=== PATIENT | female | born 1995 | race African-American/Black ===

== ENCOUNTER 2017-02-22 18:23 | Emergency (ER) | payer OTHER ==
[~2017-02-22] VITALS: Ht 170.2 cm; Wt 62.4 kg
[2017-02-22 18:27] VITALS: TEMP 36.8; Ht 170.2 cm; Wt 62.4 kg
[2017-02-22 18:55] LABS: URINE APPEARANCE CLEAR (CLEAR); URINE COLOR DK YELLOW; URINE EPITHELIAL CELL AUTO >30 /lpf (0-5); URINE NITRITE NEG (NEG); URINE PH 5.5 (4.5-7.5); URINE SPECIFIC GRAVITY 1.032 (1.000-1.030); UROBILINOGEN NEG (NEG); ZZUR CULT IF INDIC CLEAN CATCH YES
[2017-02-22 19:11] LABS: MANUAL MICROSCOPIC REQUIRED? NO; REVIEW REQ? YES; URINE BILIRUBIN NEG (NEG)
[2017-02-22 19:22] LABS: URINE MUCUS PRESENT (NONE PRSENT)
--- NOTE | 2017-02-22 19:23 | EMERGENCY ROOM VISIT NOTE ---
History Report prepared by Sis: Sharri Hurst Under the Supervision of: Dr. Larisa Magallanes M.D. First contact with patient: 18:37 Chief Complaint: ANXIETY Stated Complaint: TROUBLE BREATHING RACING HEART CANT FOCUS History of Present Illness The patient is a 21 year old female who presents to the Emergency Room with complaints of worsening anxiety beginning four days ago. The patient reports that she had a panic attack four days ago. She states she had an "impending sense of fear" because she had a school paper due. She notes that since her panic attack she has had a difficult time getting "on top of" her anxiety. At baseline, the patient reports being able to control her anxiety well. The patient has no "official" diagnosis of anxiety and she does not take any medications. She reports some intermittent suicidal thoughts with no plan. The patient states these thoughts are new for her and just started over the past four days. She notes seeing a therapist when she was 9 years old for " separation anxiety issues". She denies any chance of . Source of History: patient Onset: 4 days ago Position: other (global) Quality: other (anxiety) Timing: worsening Modifying Factors (Relieving): other (none) Review of Systems See HPI for pertinent positives & negatives. A total of 10 systems reviewed and were otherwise negative. Past Medical & Surgical Medical Problems: (1) No Known Active Medical Problems Family History Patient reports no known family medical history. Social History Smoking Status: Never Smoker Smokeless Tobacco Use: No Alcohol Use: none Drug Use: none Housing Status: lives with roommate Occupation Status: [employer] student Current/Historical Medications Scheduled Control Pills ( Control Pills), 1 TAB PO DAILY Multivitamins/Minerals (Mvi With Minerals), 1 TAB PO DAILY Nutritional Supplements (Immune Enhance), 2 TABS DAILY Scheduled PRN Cetirizine (Zyrtec), 10 MG PO DAILY PRN for Seasonal Allergies Hydroxyzine Pamoate (Vistaril), 25 MG PO Q6 PRN for Anxiety Physical Exam Vital Signs Date Time Temp Pulse Resp B/P (MAP) Pulse Ox O2 Delivery O2 Flow Rate FiO2 02/22/17 20:54 88 20 126/72 97 02/22/17 18:27 36.8 99 16 140/87 97 Room Air Physical Exam Vital signs reviewed. General: Well-appearing female, in no significant distress. HEENT: No scleral icterus, PERRLA, neck supple. Atraumatic. Cardiovascular: Regular rate and rhythm, no extra sounds. Pulmonary: Clear to auscultation bilaterally, normal work of breathing. Abdomen: Soft, nontender, nondistended, positive bowel sounds. Musculoskeletal: Atraumatic, no peripheral edema. Neurologic: Patient awake alert and oriented x 3 Skin: Warm, dry, no rash Psych: Positive suicidal ideation, no plan, negative homicidal ideation. Medical Decision & Procedures Laboratory Results 02/22/17 18:52 Red Blood Count 4.13, Mean Corpuscular Volume 87.2, Mean Corpuscular Hemoglobin 29.5, Mean Corpuscular Hemoglobin Concent 33.9, Mean Platelet Volume 9.9, Neutrophils (%) (Auto) 68.4, Lymphocytes (%) (Auto) 25.4, Monocytes (%) (Auto) 5.7, Eosinophils (%) (Auto) 0.1, Basophils (%) (Auto) 0.3, Neutrophils # (Auto) 5.31, Lymphocytes # (Auto) 1.97, Monocytes # (Auto) 0.44, Eosinophils # (Auto) 0.01, Basophils # (Auto) 0.02 02/22/17 18:52 Test 02/22/17 18:40 02/22/17 18:52 Urine Color DK YELLOW Urine Appearance CLEAR (CLEAR) Urine pH 5.5 (4.5-7.5) Urine Specific [place] 1.032 (1.000-1.030) Urine Protein TRACE (NEG) Urine Glucose (UA) NEG (NEG) Urine Ketones 2+ (NEG) Urine Occult Blood NEG (NEG) Urine Nitrite NEG (NEG) Urine Bilirubin NEG (NEG) Urine Urobilinogen NEG (NEG) Urine Leukocyte Esterase TRACE (NEG) Urine WBC (Auto) 5-10 /hpf (0-5) Urine RBC (Auto) 0-4 /hpf (0-4) Urine Hyaline Casts (Auto) 0 /lpf (0-5) Urine Epithelial Cells (Auto) >30 /lpf (0-5) Urine Bacteria (Auto) 2+ (NEG) Urine Mucus PRESENT (NONE PRSENT) Urine Test NEG (NEG) Urine Opiates Screen NEG (NEG) Urine Methadone, Qualitative NEG (NEG) Urine Barbiturates NEG (NEG) Urine Phencyclidine (PCP) Level NEG (NEG) Ur Amphetamine/Methamphetamine NEG (NEG) MDMA (Ecstasy) Screen NEG (NEG) Urine Benzodiazepines Screen NEG (NEG) Urine Cocaine Metabolite NEG (NEG) Urine Marijuana (THC) NEG (NEG) White Blood Count 7.76 K/uL (4.8-10.8) Red Blood Count 4.13 M/uL (4.2-5.4) Hemoglobin 12.2 g/dL (12.0-16.0) Hematocrit 36.0 % (37-47) Mean Corpuscular Volume 87.2 fL (80-100) Mean Corpuscular Hemoglobin 29.5 pg (25-34) Mean Corpuscular Hemoglobin Concent 33.9 g/dl (32-36) Platelet Count 231 K/uL (130-400) Mean Platelet Volume 9.9 fL (7.4-10.4) Neutrophils (%) (Auto) 68.4 % Lymphocytes (%) (Auto) 25.4 % Monocytes (%) (Auto) 5.7 % Eosinophils (%) (Auto) 0.1 % Basophils (%) (Auto) 0.3 % Neutrophils # (Auto) 5.31 K/uL (1.4-6.5) Lymphocytes # (Auto) 1.97 K/uL (1.2-3.4) Monocytes # (Auto) 0.44 K/uL (0.11-0.59) Eosinophils # (Auto) 0.01 K/uL (0-0.5) Basophils # (Auto) 0.02 K/uL (0-0.2) RDW Standard Deviation 42.4 fL (36.4-46.3) RDW Coefficient of Variation 13.3 % (11.5-14.5) Immature Granulocyte % (Auto) 0.1 % Immature Granulocyte # (Auto) 0.01 K/uL (0.00-0.02) Anion Gap 7.0 mmol/L (3-11) Est Creatinine Clear Calc Drug Dose 93.9 ml/min Estimated GFR () 102.5 Estimated GFR (Non- 88.5 BUN/Creatinine Ratio 9.5 (10-20) Calcium Level 8.9 mg/dl (8.5-10.1) Total Bilirubin 0.5 mg/dl (0.2-1) Direct Bilirubin 0.2 mg/dl (0-0.2) Aspartate Amino Transf (AST/SGOT) 19 U/L (15-37) Alanine Aminotransferase (ALT/SGPT) 21 U/L (12-78) Alkaline Phosphatase 49 U/L (45-117) Total Protein 7.8 gm/dl (6.4-8.2) Albumin 3.8 gm/dl (3.4-5.0) Thyroid Stimulating Hormone (TSH) 0.318 uIu/ml (0.300-4.500) Salicylates Level < 1.7 mg/dl (2.8-20) Acetaminophen Level < 2 ug/ml (10-30) Ethyl Alcohol mg/dL < 3.0 mg/dl (0-3) Laboratory results per my review. Medications Administered Medications (Trade) Dose Ordered Sig/Hanny Route Start Time Stop Time Status Last Admin Dose Admin Hydroxyzine HCl (Vistaril Tab) 25 mg NOW STAT PO 02/22/17 20:06 02/22/17 20:07 DC 02/22/17 20:19 25 MG Hydroxyzine HCl (Vistaril Tab) 50 mg NOW STAT PO 02/22/17 20:07 02/22/17 20:08 DC 02/22/17 20:19 50 MG ED Course 1903: Past medical records reviewed. The patient was evaluated in room A7. A complete history and physical examination was performed. 2005: Ordered Vistaril Tab 25 mg PO. 2006: Ordered Vistaril Tab 25 mg PO. 2041: Upon reevaluation, the patient appeared to have improvement of her symptoms. I discussed findings with her. She verbalized agreement of the treatment plan. The patient was discharged home. Medical Decision Differential diagnosis: Etiologies such as mood disorder, infection, hypoglycemia, electrolyte abnormalities, cardiac sources, intracerebral event, toxicologic, neurologic, as well as others were entertained. This patient was evaluated and appeared to be in no significant distress. Physical examination is fairly unrevealing. Patient was medically cleared and evaluated by mental health. UA is likely contaminated. test is negative. The psychiatric case manager specialist, Chris, did a mental health screening on the patient. She is able to safety plan and continues to deny active suicidal thoughts. He spoke with her mother who stated she has been having trouble sleeping. She was given Vistaril 25 mg by mouth. She was sent home with 2 tablets and given a prescription. They will follow-up with mental health upon her return home for winter break next week. She will return to the ER for worsening of symptoms or any medical concerns. Medication Reconcilliation Current Medication List: was personally reviewed by me Blood Pressure Screening Patient's blood pressure: Elevated blood pressure Blood pressure disposition: Elevated BP felt to be situational Impression Primary Impression: Mild mood disorder Scribe Attestation The scribe's documentation has been prepared under my direction and personally reviewed by me in its entirety. I confirm that the note above accurately reflects all work, treatment, procedures, and medical decision making performed by me. Departure Information Dispostion Home / Self-Care Prescriptions Hydroxyzine Pamoate (VISTARIL) 25 Mg Cap 25 MG PO Q6 Y for Anxiety, #20 CAP Prov: Larisa Magallanes M.D. 02/22/17 Forms HOME CARE DOCUMENTATION FORM, IMPORTANT VISIT INFORMATION Patient Instructions My [facility] Additional Instructions Diagnosis: Anxiety Vistaril 25 mg every 6-8 hours as needed for anxiety. Minimize stimulants such as caffeine. Follow-up with your primary care provider and seek psychiatric evaluation as soon as possible. Return to the emergency department immediately for worsening of symptoms or any thoughts of self-harm or any medical concerns.
[2017-02-22 19:24] LABS: BASO % 0.3 %; BASO ABS # 0.02 K/uL (0-0.2); COMPLETE YES; EOS % 0.1 %; IG% 0.1 %; LYMPH % 25.4 %; LYMPH ABS # 1.97 K/uL (1.2-3.4); MEAN CELL VOLUME 87.2 fL (80-100); MEAN CORPUSCULAR HEMOGLOBIN 29.5 pg (25-34); MEAN CORPUSCULAR HGB CONC 33.9 g/dl (32-36); MEAN PLATELET VOLUME 9.9 fL (7.4-10.4); MONO % 5.7 %; NEUT % 68.4 %; PLATELET COUNT 231 K/uL (130-400); RED BLOOD COUNT 4.13 M/uL (4.2-5.4); WHITE BLOOD COUNT 7.76 K/uL (4.8-10.8)
[2017-02-22 19:27] LABS: BUN/CREATININE RATIO 9.5 (10-20); CALCIUM 8.9 mg/dl (8.5-10.1); CREATININE 0.93 mg/dl (0.60-1.20); POTASSIUM 3.3 mmol/L (3.5-5.1)
[2017-02-22 19:30] LABS: ACETAMINOPHEN < 2 ug/ml (10-30)
[2017-02-22 19:38] LABS: THYROID STIMULATING HORMONE 0.318 uIu/ml (0.300-4.500)
[2017-02-22 19:50] LABS: BENZODIAZEPINE, URINE NEG (NEG); COCAINE,URINE NEG (NEG); PHENCYCLIDINE, URINE NEG (NEG)
[2017-02-22] MEDS ORDERED: hydrOXYzine HCL 25 MG TAB PO STA ×2 (20:06→20:07)
[2017-02-22] MEDS ORDERED: HYDR1CAP85 PO (20:14)
[2017-02-22] MEDS ORDERED: MULT-513 PO (20:51)
[2017-02-22] MEDS ORDERED: NUTRTAB53 (20:51)
[2017-02-22] MEDS ORDERED: BCPILLS PO (20:51)
[2017-02-22] MEDS ORDERED: CETI10TA84 PO (20:51)
[2017-02-22 20:54] VITALS: BP 126/72; PULSE 88; O2SAT 97
== END 2017-02-22 20:56 | disposition home or self-care (01) ==
LOC: C.EDB 18:25 → C.EDA 20:56
DX: F39 Unspecified mood [affective] disorder (principal)

== ENCOUNTER → 2017-03-23 | Outpatient (CLI) | payer OTHER ==
[~2017-03-23] MED LIST: BCPILLS PO; CETI10TA84 PO; MULT-513 PO; NUTRTAB53
== END | disposition home or self-care (01) ==
LOC: C.LABSPEC 17:14
PROVIDERS: ATTEND Physician Assistant
DX: Z11.3 Encounter for screening for infections with a predominantly sexual mode of transmission (principal); Z11.8 Encounter for screening for other infectious and parasitic diseases